=== PATIENT | female | born 1970 | race Caucasian/White ===

== ENCOUNTER → 2016-10-30 | Outpatient (CLI) | payer MEDICARE, OTHER ==
[~2016-10-30] MED LIST: ATIVAN0.5 MG PO; BUSPAR 10MG10 MG PO; CATAPRES 0.1MG0.1 MG PO; DESYREL 50 MG T50 MG PO; DIFLUCAN100 MG PO; LINZESS145 MCG PO; LOPRESSOR100 MG PO; MIRALAX PACK 171 PKT PO; NEURONTIN 300300 MG PO; NORVASC 5 MG TAB5 MG PO; PHENERGAN 25 MG25 M1 PO; PHENOBARBITAL97.2 MG PO; PLAVIX 75 MG TA75 MG PO; PREDNISONE 10 M10 MG PO; PULMICORT0.5 MG/2 M INH; ZANAFLEX4 MG PO
== END ==
LOC: SLEEP 21:30
DX: G47.33 Obstructive sleep apnea (adult) (pediatric) (principal)
CPT/HCPCS: 95810

== ENCOUNTER 2017-01-18 13:32 | Inpatient (IN) | payer OTHER ==
[~2017-01-18] VITALS: Ht 162.6 cm; Wt 97.5 kg
[2017-01-18 14:20] LABS: RED BLOOD COUNT 3.43 M/UL (4.00-5.10); WHITE BLOOD COUNT 8.1 K/UL (4.5-11.0)
[2017-01-18 15:24] LABS: BUN/CREATININE RATIO 8 (0-10)
[2017-01-19 07:41] LABS: BUN/CREATININE RATIO 8 (0-10)
[2017-01-19 07:42] LABS: HEMOGLOBIN 11.5 gm/dl (12.3-15.3); RED BLOOD COUNT 3.35 M/UL (4.00-5.10); WHITE BLOOD COUNT 9.2 K/UL (4.5-11.0)
[2017-01-20 05:42] LABS: HEMOGLOBIN 9.8 gm/dl (12.3-15.3); RED BLOOD COUNT 2.88 M/UL (4.00-5.10); WHITE BLOOD COUNT 9.8 K/UL (4.5-11.0)
[2017-01-20 05:53] LABS: BUN/CREATININE RATIO 10 (0-10)
[2017-01-21 13:14] LABS: HEMOGLOBIN 10.3 gm/dl (12.3-15.3); RED BLOOD COUNT 3.06 M/UL (4.00-5.10); WHITE BLOOD COUNT 8.6 K/UL (4.5-11.0)
[2017-01-21 13:43] LABS: BUN/CREATININE RATIO 5 (0-10)
[2017-01-22 06:56] LABS: RED BLOOD COUNT 2.92 M/UL (4.00-5.10); WHITE BLOOD COUNT 8.4 K/UL (4.5-11.0)
[2017-01-22 07:15] LABS: BUN/CREATININE RATIO 8 (0-10)
[2017-01-26 07:38] LABS: BUN/CREATININE RATIO 10 (0-10)
[2017-01-26] MEDS ORDERED: CATAPRES 0.1MG0.1 MG PO (19:23)
[2017-01-26] MEDS ORDERED: PLAVIX 75 MG TA75 MG PO (19:23)
[2017-01-26] MEDS ORDERED: NEURONTIN 300300 MG PO (19:23)
[2017-01-26] MEDS ORDERED: NORVASC 5 MG TAB5 MG PO (19:27)
[2017-01-26] MEDS ORDERED: BUSPAR 10MG10 MG PO (19:27)
[2017-01-26] MEDS ORDERED: MIRALAX PACK 171 PKT PO (19:28)
[2017-01-26] MEDS ORDERED: PHENOBARBITAL97.2 MG PO (19:28)
[2017-01-26] MEDS ORDERED: LOPRESSOR100 MG PO (19:29)
[2017-01-26] MEDS ORDERED: PREDNISONE 10 M10 MG PO (19:30)
[2017-01-26] MEDS ORDERED: DESYREL 50 MG T50 MG PO (19:31)
[2017-01-26] MEDS ORDERED: PULMICORT0.5 MG/2 M INH (19:31)
[2017-01-26] MEDS ORDERED: ZANAFLEX4 MG PO (19:31)
[2017-01-26] MEDS ORDERED: ATIVAN0.5 MG PO (19:32)
[2017-01-26] MEDS ORDERED: PHENERGAN 25 MG25 M1 PO (19:32)
[2017-02-21] MEDS ORDERED: LINZESS145 MCG PO (07:29)
[2017-02-21] MEDS ORDERED: DIFLUCAN100 MG PO (09:36)
== END 2017-01-26 18:10 | disposition home or self-care (01) | DRG 389 ==
LOC: ER1 13:32 → M/S 23:30 → ZEROF 23:30 → M/S 01-19 09:03
PROVIDERS: Family Medicine; Hospitalist; Internal Medicine; Internal Medicine Gastroenterology; ADMIT Internal Medicine
PROC: 0DJD8ZZ Inspection of Lower Intestinal Tract, Via Natural or Artificial Opening Endoscopic (ICD-10-PCS; principal; 2017-01-24 19:45)
DX: K56.7 Ileus, unspecified (principal); J96.11 Chronic respiratory failure with hypoxia; K51.90 Ulcerative colitis, unspecified, without complications; B19.20 Unspecified viral hepatitis C without hepatic coma; E11.9 Type 2 diabetes mellitus without complications; E66.01 Morbid (severe) obesity due to excess calories; K56.41 Fecal impaction; M54.9 Dorsalgia, unspecified; F17.210 Nicotine dependence, cigarettes, uncomplicated; K74.69 Other cirrhosis of liver; K72.90 Hepatic failure, unspecified without coma; Z88.1 Allergy status to other antibiotic agents; Z88.8 Allergy status to other drugs, medicaments and biological substances; Z99.81 Dependence on supplemental oxygen; Z91.14 Patient's other noncompliance with medication regimen; Z68.36 Body mass index [BMI] 36.0-36.9, adult; Z79.02 Long term (current) use of antithrombotics/antiplatelets; Z79.84 Long term (current) use of oral hypoglycemic drugs; Z79.899 Other long term (current) drug therapy
CPT/HCPCS: 36415; 71010; 74000; 80048; 80053; 81001; 82550; 82553; 82962; 83690; 83735; 83874; 84100; 84484; 85025; 85027; 85610; 85730; 86850; 86900; 86901; 93005; 94640; 94664; 94760; 96374; 96375; 99285; J0360; J1956; J2060; J2270; J2550; J2920; J7030; J7040; J7050; Q0163

== ENCOUNTER → 2017-02-21 | Day surgery (SDC) | payer OTHER | END | disposition home or self-care (01) | LOC: OR 06:52 | PROVIDERS: Internal Medicine Gastroenterology | PROC: 0DB68ZX Excision of Stomach, Via Natural or Artificial Opening Endoscopic, Diagnostic (ICD-10-PCS; principal; 2017-02-21 08:45) | DX: K29.51 Unspecified chronic gastritis with bleeding (principal); B37.81 Candidal esophagitis; I10 Essential (primary) hypertension; J44.9 Chronic obstructive pulmonary disease, unspecified; K56.41 Fecal impaction; E66.01 Morbid (severe) obesity due to excess calories; F17.210 Nicotine dependence, cigarettes, uncomplicated; Z88.1 Allergy status to other antibiotic agents; Z88.8 Allergy status to other drugs, medicaments and biological substances; Z79.02 Long term (current) use of antithrombotics/antiplatelets; Z79.899 Other long term (current) drug therapy; Z90.710 Acquired absence of both cervix and uterus; Z68.41 Body mass index [BMI] 40.0-44.9, adult | CPT/HCPCS: 82962; J2250; J3010; J7030 ==

== ENCOUNTER 2017-02-22 16:48 | Emergency (ER) | payer OTHER ==
[2017-02-22 19:37] LABS: HEMOGLOBIN 12.1 gm/dl (12.3-15.3); RED BLOOD COUNT 3.64 M/UL (4.00-5.10); WHITE BLOOD COUNT 9.2 K/UL (4.5-11.0)
[2017-02-22 20:17] LABS: BUN/CREATININE RATIO 13 (0-10)
== END 2017-02-23 00:25 | disposition home or self-care (01) ==
LOC: ER1 16:48
PROVIDERS: Emergency Medicine
DX: K59.09 Other constipation (principal); F17.200 Nicotine dependence, unspecified, uncomplicated; J44.9 Chronic obstructive pulmonary disease, unspecified
CPT/HCPCS: 36415; 74022; 80053; 83605; 83690; 83880; 85025; 96374; 96375; 96376; 99284; J2270; J2550; J7030; J7050; Q9962